=== PATIENT | female | born 2005 | race Caucasian/White ===

== ENCOUNTER 2024-07-27 09:06 | Outpatient (CLI) | payer MEDICAID, SELFPAY ==
[2024-07-27 09:19] LABS: 6-Acetylmorphine ND; Cocaine Confirmation ND; Methamphetamine ND ng/mL; Opiate Confirmation ND; Oxycodones Confirmation ND; Phencyclidine Confirmation ND
[2024-07-27 10:51] LABS: HCG Qualitative, Serum Negative (Negative)
[2024-07-27 10:54] LABS: Valproic Acid, (Depakene) 38.4 ug/ml (50-100)
[2024-07-28 17:10] LABS: Levetiracetam (Keppra) 22.7 ug/mL (10.0-40.0)
[2024-08-03 20:52] LABS: Amphetamines IA Negative ng/mL (Cutoff:50); Barbiturates, IA Negative ug/mL (Cutoff:0.1); Benzodiazepines, IA Negative ng/mL (Cutoff:20); Cannabidiol Negative (.); Cannabinoid Confirmation Positive (.); Cocaine & Metabolite, IA Negative ng/mL (Cutoff:25); Methadone, IA Negative ng/mL (Cutoff:25); Opiates, IA Negative ng/mL (Cutoff:5); Oxycodones, IA Negative ng/mL (Cutoff:5); Phencyclidine, IA Negative ng/mL (Cutoff:8); Propoxyphene, IA Negative ng/mL (Cutoff:50); THC (Marijauna) Metabolite, IA ++POSITIVE++ ng/mL (Cutoff:5); Tetrahydrocannabinol 2.5 ng/mL (.)
== END 2024-07-27 23:59 | disposition home or self-care (01) ==
LOC: LAB 09:07
PROVIDERS: PCP Family Medicine; Visit Provider Specialist
DX: G40.909 Epilepsy, unspecified, not intractable, without status epilepticus (principal)
CPT/HCPCS: 36415; 80164; 80177; 80307; 80358; 84703

== ENCOUNTER 2024-09-23 13:23 | Outpatient (CLI) | payer MEDICAID, SELFPAY ==
--- NOTE | 2024-09-23 13:00 | MR_ITS ---
FINAL REPORT CLINICAL HISTORY: known epilepsy, for 3 years last seizure on august 10, 2024 COMPARISON: None FINDINGS: Multiplanar MR imaging of the brain was performed without and with contrast. There is a large region of encephalomalacia in the anterior superior left frontal region. No underlying gliosis or calvarial defect is identified. There is associated thinning of the anterior body of the corpus callosum. There is a tiny focus of increased signal in the right frontal lobe, best seen on image #14 of series 5, that may represent a focus of gliosis. There is no evidence of intracranial hemorrhage or mass. No abnormal extra-axial fluid collection is seen. The ventricular size is within normal limits, other than ex-vacuo enlargement of the left frontal horn adjacent to the encephalomalacia previously described. There is no evidence of shift of the midline structures. The posterior fossa and brainstem have an unremarkable appearance. No area of abnormal restricted diffusion is identified. No abnormal contrast enhancement is seen. Normal major vessel vascular flow voids are noted. IMPRESSION: Large region of encephalomalacia as described in the anterior superior left frontal region. No acute intracranial abnormality is noted. Reviewed, Interpreted and Dictated by Darwin Mcdonald MD Transcribed by Nadja Menon Authenticated and [facility]
[2024-09-23] MEDS: SODIUM CHLORIDE 0.9% 10ML SYR (RAD ONLY) 10 ML IV (18:17)
[2024-09-23] MEDS: GADOTERIDOL INJ 20ML SYRINGE 15 ML IV (18:17)
== END 2024-09-23 23:59 | disposition home or self-care (01) ==
LOC: RAD 13:23
PROVIDERS: PCP Family Medicine; Visit Provider Specialist
DX: G93.89 Other specified disorders of brain (principal); G40.909 Epilepsy, unspecified, not intractable, without status epilepticus
CPT/HCPCS: 70553; A9576